=== PATIENT | male | born 1975 | race Caucasian/White ===

== ENCOUNTER 2019-01-31 13:45 | Emergency (ER) | payer MEDICAID ==
[~2019-01-31] VITALS: Ht 182.9 cm; Wt 98.5 kg
[2019-01-31 13:52] VITALS: BP 168/111
[2019-01-31] MEDS ORDERED: CEPH-572 PO (14:41)
== END 2019-01-31 15:00 | disposition home or self-care (01) ==
LOC: ER 13:46
DX: L02.512 Cutaneous abscess of left hand (principal); Z79.899 Other long term (current) drug therapy
CPT/HCPCS: 26010; 99283